=== PATIENT | female | born 1990 | race Two or more races ===

== ENCOUNTER 2020-11-23 18:28 | Emergency (ER) | payer SELFPAY ==
[~2020-11-23] VITALS: Ht 170.2 cm; Wt 68.0 kg
[2020-11-23] MEDS ORDERED: ONDANSETRON HCL 4 MG/2 ML VIAL IV ONE ×2 (20:15→21:45)
[2020-11-23] MEDS ORDERED: HYDROmorphone HCL 2 MG/ML VL IV ONE (20:15)
[2020-11-23 20:37] VITALS: BP 108/64
[2020-11-23] MEDS ORDERED: KETOROLAC TROMETH 30 MG/ML 1ML VIAL IV ONE (21:45)
== END 2020-11-23 22:10 | disposition home or self-care (01) ==
LOC: ER 18:28
DX: M54.31 Sciatica, right side (principal); F17.210 Nicotine dependence, cigarettes, uncomplicated; Z90.49 Acquired absence of other specified parts of digestive tract
CPT/HCPCS: 72100; 72131; 96374; 96375; 96376; 99284; J1170; J1885; J2405